=== PATIENT | male | born 1990 | race Two or more races ===

== ENCOUNTER 2023-06-05 07:42 | Emergency (ER) | payer OTHER ==
[~2023-06-05] VITALS: Ht 177.8 cm; Wt 72.6 kg
[~2023-06-05 07:42] MED LIST: CEFDINIR300 MG; PHENABID D1 TAB.SR .
[2023-06-05] MEDS ORDERED: HUMALOG100 UNIT/2 SQ (08:11)
[2023-06-05] MEDS ORDERED: LANTUS SOL100 UNIT/1 SQ (08:11)
[2023-06-05 09:21] LABS: PH,URINE 6.5 (5.0-8.0); URINE APPEARANCE Clear; URINE BILIRRUBIN Negative (NEGATIVE); URINE BLOOD Negative; URINE COLOR Yellow; URINE LEUKOCYTE Negative; URINE NITRATE Negative; URINE PROTEIN Negative (NEGATIVE); URINE UROBILINOGEN 0.2 E.U./dl
[2023-06-05 09:22] LABS: URINE BACTERIA 7.5 uL (0.0-1933); URINE EPITHELIAL CELLS 1.6 uL (0.0-38.8)
[2023-06-05 09:33] LABS: HEMATOCRIT 44.2 % (39.0-48.0); HEMOGLOBIN 15.5 g/dL (13-16.00); MEAN CELL VOLUME 86.5 fL (80.0-100.00); MEAN CORPUSCULAR HEMOGLOBIN 30.4 pg (27.00-32.0); MEAN CORPUSCULAR HGB CONC 35.1 g/dl (32.0-36.0); RED BLOOD COUNT 5.11 M/uL (4.00-6.00); RED CELL DISTRIBUTION WIDTH 12.7 % (11.5-14.5)
[2023-06-05 09:47] LABS: PLATELET COUNT 109 K/uL (150-450); URINE GLUCOSE >=1000 MG/DL (NEGATIVE); URINE RBC 0.1 uL (0.0-20.8); URINE WBC 1.5 uL (0.0-23.2)
[2023-06-05 09:56] LABS: ALBUMIN 3.9 gm/dL (3.4-5.0); BILIRUBIN TOTAL 0.64 mg/dL (0.3-1.2); CALCIUM 9.3 mg/dL (8.5-10.1); CREATININE SERUM 1.12 mg/dL (0.70-1.30); GFR 76.98; GLOBULINA 3.3 G/DL (2.4-3.5); POTASSIUM 4.25 mEq/L (3.5-5.1); TOTAL PROTEIN 7.2 gm/dL (6.4-8.2)
[2023-06-05 14:57] LABS: HEMATOCRIT 42.5 % (39.0-48.0); HEMOGLOBIN 14.3 g/dL (13-16.00); MEAN CELL VOLUME 87.5 fL (80.0-100.00); MEAN CORPUSCULAR HEMOGLOBIN 29.4 pg (27.00-32.0); MEAN CORPUSCULAR HGB CONC 33.6 g/dl (32.0-36.0); PLATELET COUNT 109 K/uL (150-450); RED BLOOD COUNT 4.86 M/uL (4.00-6.00); RED CELL DISTRIBUTION WIDTH 12.8 % (11.5-14.5)
== END 2023-06-05 15:48 | disposition home or self-care (01) ==
LOC: ER 07:42
PROVIDERS: Emergency Medicine
DX: D69.6 Thrombocytopenia, unspecified (principal); J11.1 Influenza due to unidentified influenza virus with other respiratory manifestations; R73.9 Hyperglycemia, unspecified; Z20.822 Contact with and (suspected) exposure to COVID-19